=== PATIENT | male | born 1935 | race Caucasian/White ===

== ENCOUNTER 2017-11-26 16:18 | Emergency (ER) | payer MEDICARE, OTHER ==
[~2017-11-26] VITALS: Ht 185.4 cm; Wt 102.0 kg
[2017-11-26] MEDS ORDERED: PLAVIX75 MG PO (16:55)
[2017-11-26] MEDS ORDERED: LISINOPRIL20 MG PO (16:56)
[2017-11-26] MEDS ORDERED: METFORMIN500 MG PO (16:56)
[2017-11-26] MEDS ORDERED: LASIX 40 MG40 MG/TAB PO (16:56)
[2017-11-26] MEDS ORDERED: ASPIRIN81 MG PO (16:57)
[2017-11-26] MEDS ORDERED: PRAVASTATIN SOD40 MG PO (16:57)
[2017-11-26] MEDS ORDERED: MULTI VIT PO (16:58)
[2017-11-26] MEDS ORDERED: MITIGARE0.6 MG PO (17:29)
[2017-11-26] MEDS ORDERED: COLCHICINE0.6 M2 PO (17:46)
[2017-11-26 17:55] VITALS: BP 187/81
== END 2017-11-26 17:55 | disposition home or self-care (01) ==
LOC: ED 16:18
DX: M10.072 Idiopathic gout, left ankle and foot (principal); I10 Essential (primary) hypertension; E11.9 Type 2 diabetes mellitus without complications; E78.5 Hyperlipidemia, unspecified; Z95.2 Presence of prosthetic heart valve; Z85.46 Personal history of malignant neoplasm of prostate